=== PATIENT | female | born 1945 | race Hispanic/Latino ===

== ENCOUNTER 2018-11-13 13:46 | Inpatient (IN) | payer MEDICARE ==
[2018-11-13] MEDS ORDERED: Ondansetron PF 4 MG/2 ML Vial SLOW IVP PRN (14:39)
[2018-11-13] MEDS ORDERED: Acetaminophen 325 MG TAB PO PRN (14:39)
[2018-11-13] MEDS ORDERED: Senokot S 8.6-50 MG TAB PO PRN (14:41)
[2018-11-13] MEDS ORDERED: Sodium Chloride 0.9% 1,000 ML IV SCH (14:45)
[2018-11-13 16:14] LABS: #Eosinphils 0.1 thou/uL (0.0-0.7); #Lymphocytes 1.8 thou/uL (1.20-3.40); #Monocytes 0.5 thou/uL (0.11-0.59); #Neutrophils 4.4 thou/uL (1.40-6.50); %Basophils 0.4 % (0.0-1.0); %Eosinophils 1.6 % (0.0-10.0); %Lymphocytes 26.8 % (21.0-51.0); %Monocytes 7.7 % (0.0-10.0); %Neutrophils 63.4 % (42.0-75.0); Mean Corpuscular Hemoglobin 30.7 pg (27.0-31.0); Mean Corpuscular Volume 87.7 fL (78.0-98.0); Mean Platelet Volume 7.7 fL (7.4-10.4); Platelet Count 237 thou/uL (130-400); RBC Distribution Width 11.9 % (11.5-14.5); Red Blood Cell (RBC) Count 4.24 mill/uL (4.20-5.40); White Blood Cell (WBC) Count 6.9 thou/uL (4.8-10.8)
[2018-11-13 16:31] LABS: Lactic Acid 1.4 mmol/L (0.5-2.2)
[2018-11-13 16:40] LABS: ALT (SGPT) 24 U/L (8-55); AST (SGOT) 52 U/L (5-34); Albumin 4.5 g/dL (3.4-4.8); Alkaline Phosphatase 138 U/L (40-150); Anion Gap 12 mmol/L (10-20); BUN (Urea Nitrogen) 12 mg/dL (9.8-20.1); Bilirubin, Total 0.3 mg/dL (0.2-1.2); Calc. Creatinine Clearance 0 mL/min (70-130); Calcium 9.4 mg/dL (7.8-10.44); Carbon Dioxide 25 mmol/L (23-31); Chloride 105 mmol/L (98-107); Estimated GFR-MDRD 65; Globulin 2.9 g/dL (2.4-3.5); Glucose 114 mg/dL (83-110); Potassium 3.7 mmol/L (3.5-5.1); Protein, Total 7.4 g/dL (6.0-8.3); Sodium 138 mmol/L (136-145)
[2018-11-13] MEDS ORDERED: CeleCOXIB 100 MG CAP PO PRN (17:13)
[2018-11-13] MEDS ORDERED: Metamucil PACK PO PRN (17:13)
[2018-11-13 18:13] VITALS: BMI 25.0
[2018-11-13] MEDS: Rosuvastatin 20 MG TAB PO SCH (21:14)
[2018-11-13] MEDS: Famotidine 20 MG TAB PO SCH (21:14)
[2018-11-13] MEDS: cefTRIAXone\\ROCEPHIN 2 GM in Sodium Chloride 0.9% 100 ML IVPB SCH (21:14)
[2018-11-13] MEDS: Doxycycline 100 MG CAP PO SCH (21:14)
--- NOTE | 2018-11-14 07:43 | HP ---
PRIMARY CARE PHYSICIAN: Ghassan Garvin MD CHIEF COMPLAINT: Cellulitis. HISTORY OF PRESENT ILLNESS: The patient was treated in [facility] over the holiday weekend with and was prescribed Bactrim for a bug bite, she sustained possible mosquito or possible spider. However, the patient did not see what bit her. She simply awoke the day after Labor Day with a red welt to her right posterolateral arm. This subsequently grew larger and larger and erythema and pallor ended up increasing. The patient completed the antibiotic course, yet extension past demarcation with marking pen all the way down the right arm to nearly the patient's olecranon process occurred. The patient denies any form of fevers, presented to my office this morning for evaluation, received Rocephin 1 g. Recommended to change antibiotic regimen. Did offer the patient hospitalization for outpatient failure. The patient accepted, was directly admitted. Temperature on arrival to floor was 98.2, pulse of 60, respiratory rate of 18, oxygen saturation 99% on room air, blood pressure 112/71. LABORATORY WORK: White blood cell count of 6.9, hemoglobin of 13.0, neutrophil percent of 63. Sodium of 138, potassium of 3.7, creatinine of 0.86, glucose of 114, lactic acid of 1.4, AST of 52, ALT of 24. ALLERGIES: THE PATIENT HAS ALLERGY TO MORPHINE, HAS SOME FOOD INTOLERANCES WITH LIP SWELLING. PAST MEDICAL HISTORY: Hypertension, hyperlipidemia, GERD, IBS, diverticulosis, osteoarthritis. MEDICATIONS: The patient is on, 1. Amitriptyline 25 mg daily. 2. Lisinopril 20 mg daily. 3. Dexilant 30 mg daily. 4. Crestor 20 mg daily. 5. Celebrex 100 mg p.r.n. PAST SURGICAL HISTORY: Includes 2 C sections, hysterectomy, and cholecystectomy. SOCIAL HISTORY: The patient is nonsmoker, lives with spouse. Children have grown, left the house. PHYSICAL EXAMINATION: GENERAL: The patient is alert and oriented, in no acute distress. HEENT: Head is normocephalic and atraumatic. Extraocular movements are intact. Sclerae are white. Oral mucosa is moist. NECK: Supple. HEART: Regular rate and rhythm. No murmurs auscultated. LUNGS: Clear to auscultation bilaterally. No rubs or wheezes. ABDOMEN: Soft, nontender. Positive bowel sounds throughout. EXTREMITIES: Lower extremities without cyanosis or edema. INTEGUMENTARY: Right posterolateral arm inferior to subacromial space, the patient with a 1.5-cm diameter ulceration with apparent ruptured vesicle. No fluctuance underneath. Needle interrogation with 25-gauge needle only produced blood back, no pus produced. Extending from that is approximately 8 x 9 cm of erythema and pallor with no areas of fluctuance or further skin breakdown. Extending inferior to this area is an additional 6 cm of erythema and pallor streaking downward toward the olecranon process, approximately 3 cm wide. ASSESSMENT AND PLAN: Cellulitis, failed outpatient treatment, hypertension, irritable bowel syndrome, gastroesophageal reflux disease. Continuing home medications for the above cellulitis, starting on Rocephin, given . Job ID: [id number]
[2018-11-14] MEDS ORDERED: hydrOXYzine 25 MG TAB PO PRN (08:06)
[2018-11-14] MEDS ORDERED: hydrOXYzine 25 MG TAB PO SCH (08:15)
[2018-11-14] MEDS ORDERED: Prevnar 13-Val Conj/PF 0.5 ML SYRINGE IM ONE (09:00)
[2018-11-14] MEDS ORDERED: Cephalexin 250 MG/5 ML Oral Suspension PO SCH (09:00)
[2018-11-14] MEDS: Doxycycline 100 MG CAP PO SCH ×2 (09:12→20:11)
[2018-11-14] MEDS: Amitriptyline HCl 25 MG TAB PO SCH (09:13)
[2018-11-14] MEDS: Famotidine 20 MG TAB PO SCH ×2 (09:13→20:12)
[2018-11-14] MEDS: Lisinopril 20 MG TAB PO SCH (09:13)
[2018-11-14] MEDS: Cephalexin 250 MG CAP PO SCH ×3 (09:14→20:11)
[2018-11-14] MEDS: Rosuvastatin 20 MG TAB PO SCH (20:11)
[2018-11-14] MEDS: cefTRIAXone\\ROCEPHIN 2 GM in Sodium Chloride 0.9% 100 ML IVPB SCH (20:12)
[2018-11-14] MEDS ORDERED: Zolpidem Tartrate 5 MG TAB PO SCH (21:00)
--- NOTE | 2018-11-15 02:01 | HP ---
HISTORY OF PRESENT ILLNESS: The patient received Rocephin and continued on doxycycline oral, right cellulitis of upper arm showed slight receding erythema and pallor from demarcation from yesterday, does have several satellite lesions, but these are also faint and not very prominent. The patient denies any ill feelings or fevers. She just states that she had some insomnia last night. PHYSICAL EXAMINATION: VITAL SIGNS: Temperature is 98.3, pulse of 63, respiratory rate 16, oxygen saturation 97% on room air, blood pressure 123/77. GENERAL: The patient is alert and oriented. No acute distress. HEENT: Head is normocephalic, atraumatic. Extraocular movements are intact. Sclerae white. Oral mucosa is moist. NECK: Supple. HEART: Regular rate and rhythm. No murmurs auscultated. LUNGS: Clear to auscultation bilaterally. No rubs or wheezes. ABDOMEN: Soft, nontender. Positive bowel sounds throughout. EXTREMITIES: Lower extremities without cyanosis or edema. INTEGUMENTARY: Right upper extremity as per HPI. Some satellite lesions noticeably much less erythematous from yesterday. Pallor is receding. Central area around ruptured vesicle with serous discharge. No fluctuance present. Interrogated with a 25-gauge needle with only blood return. No pus from that site, at bedside today. ASSESSMENT AND PLAN: Cellulitis, insomnia and gastroesophageal reflux disease . Continuing home PPI equivalent inpatient. Continue Rocephin, initiating Keflex for cross coverage with doxycycline for oral remedy for discharge tomorrow. The patient will receive the Rocephin this evening. Likely given fading erythema at this point in time and pallor, likely be ready for discharge tomorrow or the next day depending on progress. I have already transmitted medications to pharmacy. We will have Dr. Jalil Bhatt take over in the morning. Job ID: [id number]
[2018-11-15 07:45] VITALS: BP 149/75; TEMP 97.5
[2018-11-15] MEDS: Cephalexin 250 MG CAP PO SCH (08:35)
[2018-11-15] MEDS: Amitriptyline HCl 25 MG TAB PO SCH (08:36)
[2018-11-15] MEDS: Famotidine 20 MG TAB PO SCH (08:36)
[2018-11-15] MEDS: Doxycycline 100 MG CAP PO SCH (08:36)
[2018-11-15] MEDS: Lisinopril 20 MG TAB PO SCH (08:36)
--- NOTE | 2018-11-15 10:22 | DIS ---
DATE OF ADMISSION: 11/13/2018 DATE OF DISCHARGE: 11/15/2018 DISCHARGE DIAGNOSES: 1. Right arm cellulitis and spider bite. 2. Reflux. 3. Hypertension. 4. Hyperlipidemia. 5. Osteoarthritis. DISCHARGE MEDICATIONS: 1. Amitriptyline 25 daily. 2. Lisinopril 20 daily. 3. Dexilant 30 daily. 4. Crestor 20 daily. 5. Celebrex 100 p.o. p.r.n. daily. 6. Cephalexin 500 p.o. t.i.d. 7. Doxycycline 100 p.o. b.i.d. BRIEF HISTORY: This is a 73-year-old female, who presented with a right arm spider bite and cellulitis. She was seen in the [facility] and received some antibiotics. However, she continued to get worse. The area of redness, swelling, and pain became worse. She then presented to the hospital. HOSPITAL COURSE: The patient was started on IV antibiotics. Her area of redness was demarcated. Over 24 to 48 hours, the redness decreased and the swelling decreased. She is now ready for discharge. This possibly could be a brown recluse spider bite. The patient will continue with doxycycline and cephalexin. She will follow up with Dr. Garvin in the next few days. Job ID: [id number]
== END 2018-11-15 11:18 | disposition home or self-care (01) | DRG 603 ==
LOC: T4-A 14:03
PROVIDERS: ADMIT Family Medicine; ATTEND Family Medicine
DX: L03.113 Cellulitis of right upper limb (principal); K21.9 Gastro-esophageal reflux disease without esophagitis; I10 Essential (primary) hypertension; E78.5 Hyperlipidemia, unspecified; M19.90 Unspecified osteoarthritis, unspecified site; G47.00 Insomnia, unspecified; K58.9 Irritable bowel syndrome, unspecified; T63.301A Toxic effect of unspecified spider venom, accidental (unintentional), initial encounter; Y92.9 Unspecified place or not applicable; Z88.6 Allergy status to analgesic agent; Z88.8 Allergy status to other drugs, medicaments and biological substances; Z90.710 Acquired absence of both cervix and uterus
CPT/HCPCS: 36415; 80053; 83605; 85025; J0696; J3490

== ENCOUNTER 2024-02-13 08:19 | Outpatient (CLI) | payer MEDICARE | END 2024-02-13 08:20 | disposition home or self-care (01) | LOC: BICCT 08:19 | PROVIDERS: ATTEND Family Medicine | DX: R10.2 Pelvic and perineal pain (principal); K59.00 Constipation, unspecified; K57.30 Diverticulosis of large intestine without perforation or abscess without bleeding | CPT/HCPCS: 36415; 74178; 82565 ==